=== PATIENT | female | born 1950 | race Asian ===

== ENCOUNTER 2025-01-15 06:40 | Day surgery (SDC) | payer OTHER ==
[~2025-01-15] VITALS: Ht 149.9 cm; Wt 45.0 kg
[~2025-01-15 06:40] MED LIST: ALBUTEROL SULFATE 2.5 MG/0.5 ML NEB SOLUTION NEB ONE; BENZOCAINE 20% 50 MCG/SPRAY 57 GM ONE; LIDOCAINE 2% 11 ML JELLY ONE; LIDOCAINE 4% 50 ML SOLUTION ONE
[2025-01-15] MEDS ORDERED: MIDAZOLAM HCL 2 MG/2 ML VIAL ONE (07:55)
[2025-01-15] MEDS ORDERED: FentaNYL CITRATE PF 100 MCG/2 ML VIAL ONE (07:55)
[2025-01-15] MEDS ORDERED: ATOR10TA PO (07:59)
[2025-01-15] MEDS ORDERED: BENZ-227 PO (08:03)
[2025-01-15] MEDS: SODIUM CHLORIDE 0.9% 1,000 ML IV ONE (08:03)
[2025-01-15] MEDS ORDERED: METO25XL PO (08:03)
[2025-01-15] MEDS ORDERED: CHOL25TA4 PO (08:03)
[2025-01-15] MEDS ORDERED: LOSA-382 PO (08:03)
[2025-01-15] MEDS ORDERED: FEXO-353 PO (08:03)
[2025-01-15] MEDS ORDERED: BACL10TA PO (08:04)
[2025-01-15] MEDS ORDERED: HYDR28CR97 TP (08:20)
[2025-01-15] MEDS ORDERED: TRIA15CR49 TP (08:20)
[2025-01-15] MEDS ORDERED: BACI28.410 TP (08:20)
[2025-01-15] MEDS ORDERED: DICL100G60 TP (08:20)
[2025-01-15] MEDS ORDERED: KETO15CR2 TP (08:20)
[2025-01-15 09:33] VITALS: PULSE 68; RESP 16; O2SAT 98
[2025-01-15] MEDS: MethylPREDNISolone SOD SUCC 125 MG/2 ML VIAL IVP ONE (10:04)
== END 2025-01-15 12:00 | disposition home or self-care (01) ==
LOC: SURGERY 06:40
PROVIDERS: ATTEND Internal Medicine Critical Care Medicine
DX: R05.3 Chronic cough (principal); J38.4 Edema of larynx; B37.0 Candidal stomatitis; I10 Essential (primary) hypertension; Z88.8 Allergy status to other drugs, medicaments and biological substances; Z98.51 Tubal ligation status; Z20.822 Contact with and (suspected) exposure to COVID-19
CPT/HCPCS: 31623; 87206; 87101; 87220; 87070; 31624; 94640; 71045; 87015; J3010; J2250; J7613; Z7610